=== PATIENT | male | born 1945 | race Caucasian/White ===

== ENCOUNTER 2016-09-04 03:31 | Emergency (ER) | payer MEDICARE ==
[2016-09-04] MEDS ORDERED: OPTIRAY 350 100 ML VIAL HMH IV ONE (03:32)
[2016-09-04] MEDS ORDERED: ONDANSETRON 4 MG VIAL ONE (05:50)
[2016-09-04] MEDS ORDERED: MORPHINE 4 MG/ML SYR ONE ×2 (05:51→06:49)
[2016-09-04] MEDS ORDERED: SODIUM CHLORIDE 0.9% 1,000 ML ONE (06:49)
== END 2016-09-04 09:56 | disposition home or self-care (01) ==
LOC: ER 03:31
CPT/HCPCS: 36415; 74177; 76705; 80053; 81003; 83690; 85025

== ENCOUNTER 2016-09-07 14:03 | Inpatient (IN) | payer MEDICARE ==
[~2016-09-07] VITALS: Ht 190.5 cm; Wt 92.5 kg
[2016-09-07] MEDS ORDERED: ONDANSETRON 4 MG VIAL ONE (15:25)
[2016-09-07] MEDS ORDERED: MORPHINE 4 MG/ML SYR ONE (15:25)
[2016-09-07] MEDS ORDERED: SODIUM CHLORIDE 0.9% 1,000 ML ONE (15:25)
[2016-09-07] MEDS ORDERED: ACETAMINOPHEN 325 MG TAB ONE (16:53)
[2016-09-07] MEDS ORDERED: ONDANSETRON 4 MG VIAL IV PRN (17:00)
[2016-09-07] MEDS ORDERED: SALINE FLUSH 10 ML FLUSH PRN (17:00)
[2016-09-07] MEDS ORDERED: PHARMACY TO DOSE MERREM IV SCH (17:05)
[2016-09-07] MEDS ORDERED: GADAVIST 10 ML SYR (HMH) IV ONE (17:29)
[2016-09-07] MEDS: SODIUM CHLORIDE 0.9% 1,000 ML IV SCH (18:59)
[2016-09-07 19:17] VITALS: BP_SYST 126; BP_SYST 130; RESP 20; TEMP 97.9; Ht 190.5 cm; Wt 92.5 kg
[2016-09-07] MEDS: SALINE FLUSH 10 ML FLUSH SCH (20:00)
[2016-09-07 22:10] VITALS: BP_SYST 144; RESP 18; TEMP 98.1
[2016-09-08] MEDS: SODIUM CHLORIDE 0.9% 1,000 ML IV SCH (03:52)
[2016-09-08 04:15] VITALS: BP_SYST 109; RESP 20; TEMP 100.5
[2016-09-08] MEDS: SODIUM CHLORIDE 0.9% FLUSH BAG 500 ML IV SCH (05:20)
[2016-09-08] MEDS: SALINE FLUSH 10 ML FLUSH SCH ×2 (06:20→20:00)
[2016-09-08 07:58] VITALS: BP_SYST 136; RESP 18; TEMP 98.6
[2016-09-08] MEDS: ASPIRIN 81 MG CHEW TAB PO SCH (08:52)
[2016-09-08] MEDS ORDERED: THIAMINE 100 MG in SODIUM CHLORIDE 0.9% 50 ML IV SCH (09:00)
[2016-09-08 11:52] VITALS: BP_SYST 120; RESP 18; TEMP 98.8
[2016-09-08 16:34] VITALS: BP_SYST 122; RESP 18; TEMP 99.2
[2016-09-08] MEDS: ACETAMINOPHEN 325 MG TAB PO PRN (18:13)
[2016-09-08 20:06] VITALS: BP_SYST 109; RESP 18; TEMP 98
[2016-09-09] VITALS (7 sets, daily range): BP systolic 93–134; RESP 16–20; TEMP 97.3–98.2
[2016-09-09] MEDS: ACETAMINOPHEN 325 MG TAB PO PRN (04:20)
[2016-09-09] MEDS: SODIUM CHLORIDE 0.9% 1,000 ML IV SCH ×2 (04:21→18:32)
[2016-09-09] MEDS: SODIUM CHLORIDE 0.9% FLUSH BAG 500 ML IV SCH (06:00)
[2016-09-09] MEDS: SALINE FLUSH 10 ML FLUSH SCH ×2 (09:50→20:00)
[2016-09-09] MEDS: THIAMINE 100 MG TAB PO SCH (14:00)
[2016-09-09] MEDS: LEVOFLOXACIN 750 MG/150 ML 150 ML IV SCH (14:01)
[2016-09-10 03:50] VITALS: BP_SYST 125; RESP 16; TEMP 97.8
[2016-09-10] MEDS: SODIUM CHLORIDE 0.9% FLUSH BAG 500 ML IV SCH (06:00)
[2016-09-10 07:17] VITALS: BP_SYST 132; RESP 18; TEMP 97.9
[2016-09-10] MEDS: ASPIRIN 81 MG CHEW TAB PO SCH (11:01)
[2016-09-10] MEDS: THIAMINE 100 MG TAB PO SCH (11:02)
[2016-09-10] MEDS: LEVOFLOXACIN 750 MG/150 ML 150 ML IV SCH (11:03)
[2016-09-10] MEDS: SALINE FLUSH 10 ML FLUSH SCH ×2 (11:03→20:39)
[2016-09-10 11:10] VITALS: BP_SYST 118; RESP 20; TEMP 97.3
[2016-09-10] MEDS: SODIUM CHLORIDE 0.9% 1,000 ML IV SCH ×2 (11:13→22:59)
[2016-09-10 15:40] VITALS: BP_SYST 123; RESP 20; TEMP 97.5
[2016-09-10 19:23] VITALS: BP_SYST 115; RESP 18
[2016-09-10 22:42] VITALS: BP_SYST 118; RESP 18; TEMP 98.1
[2016-09-11 02:59] VITALS: BP_SYST 118; RESP 16; TEMP 97.9
[2016-09-11] MEDS: SODIUM CHLORIDE 0.9% FLUSH BAG 500 ML IV SCH (05:36)
[2016-09-11 07:23] VITALS: BP_SYST 115; RESP 18; TEMP 97.5
[2016-09-11] MEDS: THIAMINE 100 MG TAB PO SCH (08:15)
[2016-09-11] MEDS: LEVOFLOXACIN 750 MG/150 ML 150 ML IV SCH (08:16)
[2016-09-11] MEDS: SALINE FLUSH 10 ML FLUSH SCH ×2 (08:16→20:41)
[2016-09-11 10:39] VITALS: BP_SYST 138; RESP 18; TEMP 97.5
[2016-09-11] MEDS: SODIUM CHLORIDE 0.9% 1,000 ML IV SCH (10:42)
[2016-09-11 15:44] VITALS: BP_SYST 114; RESP 18; TEMP 97.9
[2016-09-11] MEDS: PANTOPRAZOLE 40 MG TAB PO SCH (17:31)
[2016-09-11 19:18] VITALS: BP_SYST 114; RESP 18; TEMP 97.3
[2016-09-11] MEDS: SACCHA BOULARDII 250MG CAP PO SCH (20:41)
[2016-09-11 23:20] VITALS: BP_SYST 110; RESP 18; TEMP 98
[2016-09-12 04:16] VITALS: BP_SYST 103; RESP 18; TEMP 97.8
[2016-09-12] MEDS ORDERED: SODIUM CHLORIDE 0.9% FLUSH BAG 500 ML IV SCH (06:00)
[2016-09-12] MEDS: SODIUM CHLORIDE 0.9% FLUSH BAG 500 ML IV SCH (06:10)
[2016-09-12] MEDS: PANTOPRAZOLE 40 MG TAB PO SCH (06:11)
[2016-09-12] MEDS: ACETAMINOPHEN 325 MG TAB PO PRN (06:22)
[2016-09-12 07:57] VITALS: BP_SYST 115; RESP 18; TEMP 97.8
[2016-09-12] MEDS: SACCHA BOULARDII 250MG CAP PO SCH (10:20)
[2016-09-12] MEDS: SALINE FLUSH 10 ML FLUSH SCH (10:20)
[2016-09-12] MEDS: THIAMINE 100 MG TAB PO SCH (10:20)
[2016-09-12] MEDS: LEVOFLOXACIN 750 MG/150 ML 150 ML IV SCH (10:20)
[2016-09-12] MEDS: ASPIRIN 81 MG CHEW TAB PO SCH (10:20)
[2016-09-12 11:51] VITALS: BP_SYST 102; RESP 18; TEMP 97.4
[2016-09-12 13:42] VITALS: BP_SYST 102; RESP 18; TEMP 97.4
== END 2016-09-12 14:10 | disposition home or self-care (01) | DRG 439 ==
LOC: ENRESERVTM → ENRESERVDT → ER 14:03 → ENPENDDIS 16:57 → EMR 16:57 → 4NT 18:35
PROVIDERS: ADMIT Hospitalist; ATTEND Hospitalist
PROC: 02HV33Z Insertion of Infusion Device into Superior Vena Cava, Percutaneous Approach (ICD-10-PCS; principal; 2016-09-10)
PROC: B548ZZA Ultrasonography of Superior Vena Cava, Guidance (ICD-10-PCS; 2016-09-10)
DX: K85.20 Alcohol induced acute pancreatitis without necrosis or infection (principal); E87.1 Hypo-osmolality and hyponatremia; E86.0 Dehydration; I10 Essential (primary) hypertension; B96.20 Unspecified Escherichia coli [E. coli] as the cause of diseases classified elsewhere; E87.6 Hypokalemia; F10.10 Alcohol abuse, uncomplicated; K80.20 Calculus of gallbladder without cholecystitis without obstruction; E86.1 Hypovolemia; Z85.51 Personal history of malignant neoplasm of bladder
CPT/HCPCS: 36415; 36569; 74177; 74183; 76376; 76705; 76937; 80053; 80061; 81003; 83605; 83690; 85025; 85610; 85730; 87040; 87186; 96361; 96374; 96375; 99222; 99233; 99238